=== PATIENT | female | born 1980 | race Asian ===

== ENCOUNTER 2017-06-26 18:43 | Emergency (ER) | payer OTHER ==
[~2017-06-26] VITALS: Ht 160 cm; Wt 51.5 kg
[~2017-06-26 18:43] MED LIST: IBUP200T48 PO; OXYC-302 PO
[2017-06-26 18:53] VITALS: BP 130/88
[2017-06-26] MEDS ORDERED: KETOROLAC 30 MG/1 ML IM ONE (19:00)
[2017-06-26] MEDS ORDERED: PLEASE ENTER HEIGHT AND WEIGHT MC SCH (19:00)
[2017-06-26] MEDS ORDERED: KETOROLAC 30 MG/1 ML ONE (19:05)
== END 2017-06-26 20:45 | disposition home or self-care (01) ==
LOC: ED 20:39
DX: S16.1XXA Strain of muscle, fascia and tendon at neck level, initial encounter (principal); S39.012A Strain of muscle, fascia and tendon of lower back, initial encounter; V43.52XA Car driver injured in collision with other type car in traffic accident, initial encounter; Y93.89 Activity, other specified; Y92.488 Other paved roadways as the place of occurrence of the external cause; Y99.8 Other external cause status
CPT/HCPCS: 71020; 71120; 72110; 72125; 73030; 93005; 96372; 99284; J1885

== ENCOUNTER 2017-06-27 08:27 | Emergency (ER) | payer OTHER ==
[~2017-06-27] VITALS: Ht 160 cm; Wt 53.2 kg
[2017-06-27 08:32] VITALS: BP 118/82
[2017-06-27] MEDS ORDERED: ONDANSETRON ODT 4 MG ONE (09:18)
[2017-06-27] MEDS ORDERED: HYDROmorphone 1 MG/ML, 1ML ONE ×2 (09:18→10:07)
[2017-06-27] MEDS ORDERED: MAALOX/HYOSCYAMINE/LIDOCAINE 45 ML BTL ONE (09:18)
[2017-06-27] MEDS ORDERED: ONDANSETRON ODT 4 MG PO ONE (09:30)
[2017-06-27] MEDS ORDERED: MAALOX/HYOSCYAMINE/LIDOCAINE 45 ML BTL PO ONE (09:30)
[2017-06-27] MEDS ORDERED: HYDROmorphone 1 MG/ML, 1ML IM ONE (09:30)
== END 2017-06-27 10:31 | disposition home or self-care (01) ==
LOC: ED 09:46
DX: R10.13 Epigastric pain (principal); V49.88XA Car occupant (driver) (passenger) injured in other specified transport accidents, initial encounter; Y93.89 Activity, other specified; Y92.488 Other paved roadways as the place of occurrence of the external cause; Y99.8 Other external cause status
CPT/HCPCS: 96372; 99283; J1170; Q0162

== ENCOUNTER 2017-06-30 11:31 | Emergency (ER) | payer OTHER ==
[~2017-06-30] VITALS: Ht 160 cm; Wt 52.8 kg
[2017-06-30 12:25] LABS: HEMATOCRIT 40.4 % (34.6-47.8); HEMOGLOBIN 13.4 g/dL (11.7-16.4); WHITE BLOOD COUNT 8.1 x10^3/uL (3.4-10)
[2017-06-30 12:38] LABS: ASPARTATE AMINO TRANSFERASE 16 U/L (15-37); BLOOD UREA NITROGEN 8 mg/dL (7-18)
[2017-06-30 13:54] VITALS: BP 128/86
[2017-06-30] MEDS ORDERED: birth control PO (13:57)
[2017-06-30 14:55] LABS: PATH.CAST-FLAG NOT PRESENT; SPERM-FLAG NOT PRESENT; SRC-FLAG NOT PRESENT; XTAL-FLAG NOT PRESENT; YLC-FLAG NOT PRESENT
[2017-06-30] MEDS ORDERED: OMNIPAQUE 350 MG/ML, 100ML BOTTLE ONE (15:08)
== END 2017-06-30 16:13 | disposition home or self-care (01) ==
LOC: ED 14:33
DX: R10.12 Left upper quadrant pain (principal); R10.13 Epigastric pain
CPT/HCPCS: 36415; 74177; 80053; 81001; 83690; 84703; 85025; 87086; 99285; Q9967